=== PATIENT | female | born 1995 | race African-American/Black ===

== ENCOUNTER 2021-01-17 09:57 | Emergency (ER) | payer OTHER ==
[~2021-01-17] VITALS: Ht 157.5 cm; Wt 56.7 kg
[2021-01-17] MEDS ORDERED: AMOX-CLAV 875-1 EACH PO (11:25)
== END 2021-01-17 13:46 | disposition home or self-care (01) ==
LOC: ER 09:57
DX: J03.90 Acute tonsillitis, unspecified (principal)